=== PATIENT | male | born 1940 | race Caucasian/White ===

== ENCOUNTER 2016-08-13 07:17 | Emergency (ER) | payer MEDICARE, MEDICAID ==
[~2016-08-13] VITALS: Ht 167.6 cm; Wt 86.2 kg
[~2016-08-13 07:17] MED LIST: ADVAIR 100-501 EACH INH; CILOXAN 0.3% O1 DROP LEFT EYE; JANUVIA100 MG PO; NORCO 5-325 TA1 EACH ORAL; PRANDIN0.5 MG PO; PREDNISONE50 MG PO; SINGULAIR10 MG PO
[2016-08-13] MEDS ORDERED: NOVOLOG100 UNITS1 SUBQ (07:33)
[2016-08-13] MEDS ORDERED: ACETAMINOPHEN-1 EAC1 ORAL (08:17)
[2016-08-13 08:30] VITALS: BP 121/79
--- NOTE | 2016-08-13 08:53 | Emergency Room Report ---
History of Present Illness General Chief Complaint: Lower Extremity Injury Source: Patient Present Illness HPI 76-year-old male presents ED complaining of right knee pain. Notes pain for the last 3 days. Denies trauma or injury. Pain is aching, 8 out 10, nonradiating, worse with walking. Better with rest. Denies any other injuries. No other aggravating relieving factors. Denies any other associated symptoms Allergies: Coded Allergies: No Known Allergies (Verified Allergy, Unknown, 04/09/09) Patient History Past Medical History: DM, asthma Past Surgical History: none Pertinent Family History: none Social History: Denies: alcohol use, drug use, smoking Immunizations: UTD Reviewed Nursing Documentation: PMH: Agreed, PSxH: Agreed Nursing Documentation-PMH Past Medical History: No History, Except For Hx Asthma: Yes Hx Diabetes: Yes Review of Systems All Other Systems: negative except mentioned in HPI Physical Exam Vital Signs Date Time Temp Pulse Resp B/P Pulse Ox O2 Delivery O2 Flow Rate FiO2 08/13/16 07:26 97.9 81 18 121/79 97 Room Air Sp02 EP Interpretation: reviewed, normal General Appearance: no apparent distress, alert, GCS 15, non-toxic Head: normocephalic Eyes: bilateral eye PERRL, bilateral eye normal inspection ENT: normal ENT inspection Neck: normal inspection Respiratory: normal inspection Cardiovascular #1: normal inspection Gastrointestinal: normal inspection Rectal: deferred Genitourinary: no CVA tenderness Musculoskeletal: normal range of motion, tender - R knee Neurologic: alert, oriented x3, responsive, motor strength/tone normal, sensory intact, speech normal Psychiatric: normal inspection Skin: normal inspection Lymphatic: normal inspection Procedures Splinting Splinting : Consent: Verbal Pre-Made Type: HELENE wrap - R knee Pre-Proc Neuro Vasc Exam: normal Post-Proc Neuro Vasc Exam: normal Patient Tolerated: Well Complications: None Medical Decision Making Diagnostic Impression: Primary Impression: Knee pain, right Qualified Codes: M25.561 - Pain in right knee ER Course Hospital Course 76-year-old M presents to ED complaining of R knee pain. no reported trauma Differential diagnoses include: Fracture, dislocation, sprain, contusion Clinical course Patient placed on stretcher. After initial history and physical, I ordered Xrays of R knee. patient given tylenol for pain Xrays prelim read shows no acute fracture/dislocation. placed in helene wrap Diagnosis - knee pain Stable and discharged to home with prescription for Tylenol #3. apply ice, keep elevated. weight bear as tolerated. Followup with PMD. Return to ED if symptoms recur or worsen Other X-Ray Diagnostic Results X-Ray ordered: R knee # of Views/Limited Vs Complete: 3 View Interpretation: no fractures, no dislocation, no soft tissue swelling Indication: Pain Impression: No acute disease Date Electronically Signed: Aug 13, 2016 Time Electronically Signed: 08:51 Interpreting ER Physician: Omer Gore MD Last Vital Signs Date Time Temp Pulse Resp B/P Pulse Ox O2 Delivery O2 Flow Rate FiO2 08/13/16 08:30 97.9 87 18 121/79 97 Room Air Status: improved Disposition: HOME, SELF-CARE Condition: Stable Scripts Acetaminophen With Codeine (T#3) (TYLENOL #3 TAB*) Y Tab 1 TAB ORAL Q8H Y for For Pain, #20 TAB Prov: OMER GORE M.D. 08/13/16 Patient Instructions: Knee Pain, [id number], Joint Pain, [id number] OMER GORE M.D. Aug 13, 2016 08:53
--- NOTE | 2016-08-13 09:55 | Diagnostic Imaging Report ---
Indication: PAIN Technique: 3 views of the right knee Comparison: None Findings:No acute fractures. No dislocations. Joint spaces are preserved. Impression:Negative
== END 2016-08-13 08:32 | disposition home or self-care (01) ==
LOC: EMR 07:55
DX: M25.561 Pain in right knee (principal); E11.9 Type 2 diabetes mellitus without complications
CPT/HCPCS: 29530; 99283

== ENCOUNTER 2017-02-25 15:21 | Emergency (ER) | payer MEDICARE, MEDICAID ==
[~2017-02-25] VITALS: Ht 165.1 cm; Wt 90.7 kg
[~2017-02-25 15:21] MED LIST changes: +ACETAMINOPHEN-1 EAC1 ORAL; +NOVOLOG100 UNITS1 SUBQ
[2017-02-25] MEDS ORDERED: BYSTOLIC2.5 MG ORAL (16:02)
[2017-02-25 16:10] VITALS: BP 120/68
[2017-02-25] MEDS ORDERED: Bacitracin Oint UD TOPIC ONE (17:00)
[2017-02-25] MEDS ORDERED: Lidocaine 1% Plain 30 ml INJ ONE (17:00)
[2017-02-25] MEDS ORDERED: BACTRIM DS TAB1 EAC1 ORAL (17:04)
[2017-02-25] MEDS ORDERED: CEPHALEXIN500 MG ORAL (17:04)
[2017-02-25] MEDS ORDERED: ACETAMINOPHEN-1 EAC1 ORAL (17:04)
[2017-02-25 17:08] VITALS: BP 120/68
--- NOTE | 2017-02-25 21:58 | Emergency Room Report ---
History of Present Illness General Chief Complaint: Skin Rash/Abscess Source: Patient Present Illness HPI The patient is a 76-year-old male presenting for possible skin infection. He noticed a bump on the right midback 2 weeks prior which has been increasing in size. Pain is now a 7/10 sharp sensation. Worse with touch. Does not radiate. He denies any injury to the area. He denies discharge, fever, chills, SOB, CP Allergies: Coded Allergies: No Known Allergies (Verified Allergy, Unknown, 04/09/09) Patient History Past Medical History: see triage record Pertinent Family History: none Reviewed Nursing Documentation: PMH: Agreed, PSxH: Agreed Nursing Documentation-PMH Hx Asthma: Yes Hx Diabetes: Yes Review of Systems All Other Systems: negative except mentioned in HPI Physical Exam Vital Signs Date Time Temp Pulse Resp B/P (MAP) Pulse Ox O2 Delivery O2 Flow Rate FiO2 02/25/17 15:55 98.1 88 17 120/68 98 Room Air Sp02 EP Interpretation: reviewed, normal General Appearance: no apparent distress, alert, GCS 15, non-toxic Head: normocephalic, atraumatic Eyes: bilateral eye normal inspection, bilateral eye PERRL ENT: hearing grossly normal, normal pharynx, no angioedema, normal voice Musculoskeletal: back normal, gait/station normal, normal range of motion, tender - R mid back over abscess Neurologic: alert, oriented x3, responsive, motor strength/tone normal, sensory intact, speech normal Psychiatric: judgement/insight normal, memory normal, mood/affect normal, no suicidal/homicidal ideation Skin: rash - abscess of R mid back. 3 cm in diameter. Fluctuant. Tender Lymphatic: no adenopathy Procedures Incision and Drainage Incision and Drainage : Consent: Verbal Site: R mid back Blade Size: 11 Wound Location: back Wound's Depth, Shape: superficial, linear Wound Length (cm): 2 Wound Explored: contaminated Irrigated w/ Saline (ccs): 50 Anesthesia: 1% Lidocaine, Lidocaine w/ Epi Volume Anesthetic (ccs): 3 Splint Applied?: No Sling Applied?: No Patient Tolerated: Well Complications: None Medical Decision Making PA Attestation Dr. Amos is my supervising physician. Patient management was discussed with my supervising physician Diagnostic Impression: Primary Impression: Abscess ER Course The patient is a 76-year-old male presenting for possible skin infection Differential diagnoses considered but not limited to: abscess, cellulitis, lipoma, insect bite PE: Afebrile. NAD abscess of R mid back. 3 cm in diameter. Fluctuant. Tender Betadine prep was used to clean the skin and surrounding area. One percent lidocaine without epinephrine was used to anesthetize the are of planned incision. A #11 blade was used to make an incision in the central area of fluctuance approximately 1/3 the size of the diameter of the abscess. Once the incision was made, purulent material was expressed with blood. Blunt dissection was then used to release loculations and expressed more purulent material. Once only blood appeard to be expressed from the incision, normal saline was used to irrigate the inside of the abscess. The wound was then cleaned and sterile dressing applied. He is discharged home with prescription for antibiotics and pain medication. ER precautions are given Last Vital Signs Date Time Temp Pulse Resp B/P (MAP) Pulse Ox O2 Delivery O2 Flow Rate FiO2 02/25/17 17:08 98.1 88 17 120/68 98 Room Air Status: improved Disposition: HOME, SELF-CARE Condition: Improved Scripts Cephalexin* (KEFLEX*) 500 Mg Capsule 500 MG ORAL EVERY 12 HOURS, #14 CAP 0 Refills Prov: HITESHANMARIAN P.A. 02/25/17 Trimethoprim/Sulfamethoxazole 160/800* (BACTRIM DS TABLET*) 1 Each Tablet 1 TAB ORAL TWICE A DAY, #14 TAB Prov: TERZIANMARIAN P.A. 02/25/17 Acetaminophen With Codeine (T#3) (TYLENOL #3 TAB*) Y Tab 1 TAB ORAL Q6HR Y for For Pain, #10 TAB Prov: TERZIANMARIAN P.A. 02/25/17 Patient Instructions: Abscess Additional Instructions: I discussed my findings with the patient. All questions and concerns have been answered. Treatment and medication compliance have been addressed. I advised the patient that they need to follow up with PMD in 3-5 days. Return to ED if symptoms worsen, new symptoms arise, or if needed for any reason. Patient verbalized understanding of discharge instructions. MARIAN RANGEL Feb 25, 2017 21:58
== END 2017-02-25 17:09 | disposition home or self-care (01) ==
LOC: EMR 16:53
DX: L02.212 Cutaneous abscess of back [any part, except buttock and flank] (principal); E11.9 Type 2 diabetes mellitus without complications; J45.909 Unspecified asthma, uncomplicated
CPT/HCPCS: 10060; 99284

== ENCOUNTER 2017-03-29 01:47 | Emergency (ER) | payer MEDICARE, MEDICAID ==
[~2017-03-29] VITALS: Ht 170.2 cm; Wt 90.7 kg
[~2017-03-29 01:47] MED LIST changes: +BACTRIM DS TAB1 EAC1 ORAL; +BYSTOLIC2.5 MG ORAL; +CEPHALEXIN500 MG ORAL
[2017-03-29] MEDS ORDERED: PRAVACHOL40 MG ORAL (01:59)
[2017-03-29] MEDS ORDERED: LANTUS SOL100 UNIT/1 SUBQ (02:03)
[2017-03-29] MEDS ORDERED: LORazepam 0.5mg tab ORAL ONE (02:15)
--- NOTE | 2017-03-29 02:21 | Emergency Room Report ---
History of Present Illness General Chief Complaint: Dizziness Source: Patient Present Illness HPI 77YOM walk-in with acute onset of dizziness for 2 hours. Patient states dizziness comes on with lying down, head movement to the right. No associated tinnitus, headache, nausea or vomiting. States history of "high red blood cells " requiring transfusion in the past. Allergies: Coded Allergies: No Known Allergies (Verified Allergy, Unknown, 04/09/09) Patient History Past Medical History: other - polycythemia Past Surgical History: none Pertinent Family History: none Social History: Denies: smoking, alcohol use, drug use Immunizations: UTD Reviewed Nursing Documentation: PMH: Agreed, PSxH: Agreed Nursing Documentation-PMH Hx Asthma: Yes Hx Diabetes: Yes - dm2 Review of Systems All Other Systems: negative except mentioned in HPI Physical Exam Vital Signs Date Time Temp Pulse Resp B/P (MAP) Pulse Ox O2 Delivery O2 Flow Rate FiO2 03/29/17 01:52 97.5 75 16 152/75 96 Room Air Sp02 EP Interpretation: reviewed, normal General Appearance: normal inspection, well appearing, no apparent distress, alert, GCS 15, non-toxic Head: normocephalic, atraumatic Eyes: bilateral eye PERRL, bilateral eye EOMI ENT: normal ENT inspection, hearing grossly normal, normal pharynx, no angioedema, normal voice, TMs + canals normal, uvula midline, moist mucus membranes, other - +Zena-hallpike for right sided BPPV Neck: normal inspection, full range of motion, supple, thyroid normal, no meningismus, no bony tend Respiratory: normal inspection, lungs clear, normal breath sounds, no rhonchi, no respiratory distress, no retraction, no accessory muscle use, no wheezing, speaking full sentences Cardiovascular #1: regular rate, rhythm, no edema, no JVD, normal capillary refill Gastrointestinal: normal inspection, normal bowel sounds, non tender, soft, no mass, no peritonitis, non-distended, no guarding, no hernia, no pulsatile mass Genitourinary: no CVA tenderness Musculoskeletal: normal inspection, back normal, normal range of motion, no calf tenderness, pelvis stable, Jose G's Sign negative Neurologic: normal inspection, alert, oriented x3, responsive, cupola melter helper III-XII nml as tested, motor strength/tone normal, cerebellar normal, normal gait, speech normal Psychiatric: normal inspection, judgement/insight normal, mood/affect normal, no suicidal/homicidal ideation, no delusions Skin: normal inspection, normal color, no rash Lymphatic: normal inspection, no adenopathy Medical Decision Making ER Course Improved after PO ativan, Sal maneuver Unlikely ACS given EKG without ischemia and troponin are normal limits I doubt acute CVA or mass given no headache, no tinnitus, no nausea vomiting BP PV also seems more likely given positive Marshall-Hallpike maneuver and improvement after Sal close ENT followup, Ativan as needed for dizziness ER course: Patient has remained stable during ED stay. Disposition: Patient is to be discharged to home. Prescriptions given are ativan Patient is instructed to follow up with their primary care doctor within 5 days. Patient is instructed to follow up with ENT in 2-3 days Strict return precautions discussed with patient such as fever, chills, worsening/severe pain, nausea, vomiting, which may indicate severe illness. Patient verbalizes understanding and agrees with plan. Please note that this Emergency Department Report was dictated using [employer] assistant technology software, occasionally this can lead to erroneous entry secondary to interpretation by the dictation equipment EKG Diagnostic Results Rate: normal Rhythm: NSR ST Segments: no acute changes ASA given to the pt in ED: No Rhythm Strip Diag. Results EP Interpretation: yes Rate: 74 Rhythm: NSR, no PVC's, no ectopy Last Vital Signs Date Time Temp Pulse Resp B/P (MAP) Pulse Ox O2 Delivery O2 Flow Rate FiO2 03/29/17 01:52 97.5 75 16 152/75 96 Room Air Status: improved Disposition: HOME, SELF-CARE Scripts Lorazepam* (ATIVAN*) 0.5 Mg Tablet 0.5 MG ORAL DAILY for for dizziness for 7 Days, #7 TAB Prov: ASA SO M.D. 03/29/17 ASA SO M.D. Mar 29, 2017 02:21
[2017-03-29 02:32] LABS: BASOPHILS % (AUTO) 1.3 % (0.0-2.0); EOSINOPHILS % (AUTO) 1.6 % (0.0-3.0); HEMATOCRIT 46.9 % (42.0-52.0); LYMPHOCYTES % (AUTO) 21.8 % (20.0-45.0); MEAN CORPUSCULAR VOLUME 88 FL (80-99); NEUTROPHILS % (AUTO) 64.3 % (45.0-75.0); PLATELET COUNT 188 K/UL (150-450); RED BLOOD COUNT 5.33 M/UL (4.70-6.10); RED CELL DISTRIBUTION WIDTH 12.6 % (11.6-14.8); WHITE BLOOD COUNT 7.2 K/UL (4.8-10.8)
[2017-03-29 02:43] LABS: ANION GAP 4 mmol/L (5-15); BLOOD UREA NITROGEN 34 mg/dL (7-18); CALCIUM 9.2 MG/DL (8.5-10.1); CARBON DIOXIDE 33 MMOL/L (21-32); CHLORIDE 105 MMOL/L (98-107); CREATININE 1.6 MG/DL (0.55-1.30); POTASSIUM 4.1 MMOL/L (3.5-5.1); SODIUM 141 MMOL/L (136-145)
[2017-03-29 02:57] LABS: ALANINE AMINOTRANSFERASE 24 U/L (12-78); ALBUMIN 3.5 G/DL (3.4-5.0); ALKALINE PHOSPHATASE 52 U/L (46-116); ASPARTATE AMINO TRANSFERASE 14 U/L (15-37); BILIRUBIN,TOTAL 0.4 MG/DL (0.2-1.0); CKMB 2.4 NG/ML (0.0-3.6); CREATINE KINASE 130 U/L (26-308)
[2017-03-29] MEDS ORDERED: ATIVAN0.5 MG ORAL (03:03)
[2017-03-29 03:11] VITALS: BP 132/97
[2017-03-29 03:12] VITALS: BP 132/97
--- NOTE | 2017-04-06 13:52 | Cardiology Report ---
APPROVED REPORT EKG Measurement Heart [id number] Normal sinus rhythm Anterior infarct, age undetermined Abnormal ECG
== END 2017-03-29 03:13 | disposition home or self-care (01) ==
LOC: EMR 02:29
DX: R42 Dizziness and giddiness (principal); J45.909 Unspecified asthma, uncomplicated; E11.9 Type 2 diabetes mellitus without complications
CPT/HCPCS: 36415; 80053; 82550; 82553; 82962; 84484; 85025; 93005; 99284